=== PATIENT | female | born 1970 | race Caucasian/White ===

== ENCOUNTER 2022-03-26 10:39 | Outpatient (CLI) | payer OTHER, SELFPAY ==
--- NOTE | 2022-03-26 | US_ITS ---
DIAGNOSTIC BILATERAL DIGITAL BREAST TOMOSYNTHESIS MAMMOGRAPHY WITH CAD Bilateral breast ultrasound, limited HISTORY: Palpable bilateral breast masses. COMPARISON: 11/30/2016 and 01/10/2015 TECHNIQUE: Bilateral craniocaudad, mediolateral oblique, and mediolateral views are submitted with tomosynthesis and SM. Magnification views RIGHT breast. Spot compression bilateral breast. Computer aided detection utilized. Breast composition: The breasts are extremely dense, which lowers the sensitivity of mammography. There is dense breast tissue bilaterally. No discrete masses are identified within the anterior breast as indicated by the markers. There is a group of the calcification upper-outer quadrant of the RIGHT breast, 10:00. Some of these calcifications are benign in appearance and others are more concerning. Bilateral breast ultrasound, limited. RIGHT breast: At 3:00 in the superficial soft tissue is a well-circumscribed hypoechoic mass measuring 8 x 8 x 5 mm. No increased vascularity. Small sebaceous cyst or epidermoid. LEFT breast: In the superficial soft tissue of LEFT breast at 3:00 there is a hypoechoic soft tissue structure infiltrating and conforming to the space measuring 3.8 x 0.5 cm. On a few of the images there is some mild increased vascularity. This may be a small phlegmonous or inflammatory process. There is no lucent liquefied center. This corresponds to the area of the palpable nodule which expressed pus. IMPRESSION: BI-RADS: 4-Suspicious Finding-Biopsy Should Be Considered FOLLOW UP: Biopsy Recommended 1. Stereotactic biopsy recommended of the RIGHT breast calcifications at 10:00. 2. Recommend short-term ultrasound follow-up of the bilateral subareolar hypoechoic areas. Suspect the RIGHT breast mass is probably a sebaceous cyst or epidermoid. LEFT breast subareolar collection is probably phlegmonous. If either of these areas increase in size ultrasound biopsy can be obtained. Recommend 6 month ultrasound follow-up. MTDD
--- NOTE | 2022-03-26 10:49 | MM_ITS ---
WS: [id number] DIAGNOSTIC BILATERAL DIGITAL BREAST TOMOSYNTHESIS MAMMOGRAPHY WITH CAD Bilateral breast ultrasound, limited HISTORY: Palpable bilateral breast masses. COMPARISON: 11/30/2016 and 01/10/2015 TECHNIQUE: Bilateral craniocaudad, mediolateral oblique, and mediolateral views are submitted with to mosmil and MARÍA. Magnification views RIGHT breast. Spot compression bilateral breast. Computer aid ed detection utilized. Breast composition: The breasts are extremely dense, which lowers the sensitivity of mammography. The re is dense breast tissue bilaterally. No discrete masses are identified within the anterior breast a s indicated by the markers. There is a group of the calcification upper-outer quadrant of the RIGHT b reast, 10:00. Some of these calcifications are benign in appearance and others are more concerning. Bilateral breast ultrasound, limited. RIGHT breast: At 3:00 in the superficial soft tissue is a well-circumscribed hypoechoic mass measurin g 8 x 8 x 5 mm. No increased vascularity. Small sebaceous cyst or epidermoid. LEFT breast: In the superficial soft tissue of LEFT breast at 3:00 there is a hypoechoic soft tissue structure infiltrating and conforming to the space measuring 3.8 x 0.5 cm. On a few of the images the re is some mild increased vascularity. This may be a small phlegmonous or inflammatory process. There is no lucent liquefied center. This corresponds to the area of the palpable nodule which expressed p us. MM/[place] [id number] IMPRESSION: BI-RADS: 4-Suspicious Finding-Biopsy Should Be Considered FOLLOW UP: Biopsy Recommended 1. Stereotactic biopsy recommended of the RIGHT breast calcifications at 10:00 . 2. Recommend short-term ultrasound follow-up of the bilateral subareolar hypoe choic areas. Suspect the RIGHT breast mass is probably a sebaceous cyst or epid ermoid. LEFT breast subareolar collection is probably phlegmonous. If either of these areas increase in size ultrasound biopsy can be obtained. Recommend 6 mo nt ultrasound follow-up.
== END 2022-03-26 10:40 | disposition home or self-care (01) ==
LOC: RAD 10:43
PROVIDERS: Visit Provider Family Medicine
DX: N63.11 Unspecified lump in the right breast, upper outer quadrant (principal); N63.20 Unspecified lump in the left breast, unspecified quadrant
CPT/HCPCS: 76642; 77062; G0279

== ENCOUNTER 2022-05-01 12:29 | Outpatient (CLI) | payer OTHER, SELFPAY ==
--- NOTE | 2022-05-01 12:48 | MM_ITS ---
WS: [id number] STEREOTACTIC RIGHT BREAST BIOPSY WITH VACUUM ASSISTANCE HISTORY: RIGHT breast calcifications upper outer quadrant. COMPARISON: 03/26/2022, 11/30/2016 Procedure, risks and complications were explained to the patient. Medications and prior radiographs a re reviewed. RIGHT breast calcifications are located. Calcifications localized to the posterior upper outer quadra nt. Calcifications are targeted in the craniocaudal projection. The skin is cleansed with ChloraPrep and anesthetized with 1% buffered lidocaine. Deeper soft tissues anesthetized with a combination of l idocaine and epinephrine. Small dermatome is made. Needle advanced into the breast. Stereotactic imag ing reveals appropriate positioning adjacent calcifications. Multiple vacuum-assisted core biopsies a re obtained. Patient had significant bleeding during this examination which started with the first bi opsy. Patient also became vasovagal during this examination. Post biopsy specimen radiograph reveals numerous calcifications. Biopsy clip was not placed in the cavity. We did attempt to place the biopsy clip in the cavity but d ue to patient's acute vasovagal symptoms the needle had to be removed from the breast in order to att end to the patient's acute symptoms. Patient continued to bleed postbiopsy. Large hematoma was evident at the biopsy site. Compression and ice pack were necessary. Long-term compression was necessary. Patient continued to bleed slowly. Aft er approximately an hour and a half the bleeding lessened the patient was able to go home. Patient wa s instructed to return to the emergency department if bleeding persisted. Note: Patient had significant bleeding during this biopsy. Large hematoma developed at the biopsy sit e. Patient was able to be discharged after approximately an hour and a half with resolution of the bl eeding. Patient also had a significant vasovagal reaction during the biopsy therefore no biopsy clip was able to be placed. MM/[place] [id number] IMPRESSION: 1. RIGHT breast stereotactic biopsy. 2. Specimen contains numerous calcifications. Pathology: Usual ductal hyperplasia with microcalcifications. No malignancy. RECOMMENDATION: 6 month diagnostic RIGHT mammogram.
== END 2022-05-01 12:30 | disposition home or self-care (01) ==
LOC: RAD 12:39
PROVIDERS: PCP Family Medicine; Visit Provider Surgery
DX: R92.0 Mammographic microcalcification found on diagnostic imaging of breast (principal); N62 Hypertrophy of breast
CPT/HCPCS: 19081; 77065; 88305

== ENCOUNTER → 2022-05-10 09:44 | Outpatient (BNVA) | payer OTHER, SELFPAY | PROVIDERS: PCP Family Medicine; Visit Provider Family Medicine | DX: Z13.6 Encounter for screening for cardiovascular disorders (principal) | CPT/HCPCS: 80053; 80061; 81000; 84443; 85025 ==

== ENCOUNTER → 2022-06-19 09:46 | Outpatient (BNVA) | payer OTHER, SELFPAY | PROVIDERS: PCP Family Medicine; Visit Provider Family Medicine | DX: R79.89 Other specified abnormal findings of blood chemistry (principal) | CPT/HCPCS: 80074; 86664; 86665 ==

== ENCOUNTER → 2022-06-29 14:13 | Outpatient (BNVA) | payer SELFPAY | PROVIDERS: PCP Family Medicine; Visit Provider Family Medicine | DX: R79.89 Other specified abnormal findings of blood chemistry (principal) | CPT/HCPCS: 80053 ==

== ENCOUNTER 2022-08-08 13:32 | Outpatient (CLI) | payer OTHER, SELFPAY ==
--- NOTE | 2022-08-08 13:45 | CT_ITS ---
WS: [id number] LDCT LUNG CANCER SCREENING TECHNIQUE: Noncontrast CT of the chest with coronal and sagittal reformatted images. CLINICAL INFORMATION: screening COMPARISON: None. DLP: 39.71 mGy.cm DIvol: Mean CTDIvol: 0.60 (mGy) All CT scans at [facility] use at least one of these dose optimization techniques: automat ed exposure control; mA and/or kV adjustment per patient size (includes targeted exams where dose is matched to clinical indication); or iterative reconstruction. FINDINGS: No acute pulmonary infiltrates. No focal pneumonia or pleural fluid. Lobulated slightly spi culated nodular opacity RIGHT lower lobe near the diaphragm measuring 10 mm and 5.2 mm. Recommend 3 m onth follow-up LDCT Tiny noncalcified subpleural nodule LEFT upper lobe anteriorly Aortic calcification. No mediastinal or hilar lymphadenopathy. Calcified small bilateral calcified th yroid nodules. No axillary lymphadenopathy. Diffuse fatty infiltration liver. Normal GE junction. Normal spleen. Dense breast tissue bilaterally. CT/CT lung screening [id number] IMPRESSION: Lobulated slightly spiculated nodular opacity RIGHT lower lobe near the diaphragm measuring 10 mm and 5.2 mm. Recommend 3 month follow-up LDCT LUNG-RADS: 4A-Probably Suspicious FOLLOW UP: 3 Month LDCT
== END 2022-08-08 13:33 | disposition home or self-care (01) ==
PROVIDERS: PCP Family Medicine; Visit Provider Family Medicine
DX: Z12.2 Encounter for screening for malignant neoplasm of respiratory organs (principal); F17.219 Nicotine dependence, cigarettes, with unspecified nicotine-induced disorders
CPT/HCPCS: 71271; 80053

== ENCOUNTER 2022-08-14 06:27 | Outpatient (CLI) | payer OTHER, SELFPAY ==
--- NOTE | 2022-08-14 06:30 | US_ITS ---
WS: [id number] Complete ABDOMINAL ULTRASOUND HISTORY: elevated LFTs COMPARISON: None available. Liver: 20.3 cm in length. Moderate enlargement of the liver due to hepatic steatosis. Coarse echotext ure. No mass. Portal Vein: Normal hepatopetal flow with monophasic waveform. Gallbladder: Normally distended with layering stones and sludge. No wall thickening or pericholecysti c fluid. CBD: 0.4 cm Pancreas: Normal size and echogenicity. Right kidney: 11.0 cm x 4.8 x 4.5 cm. Cortex:1.3 cm. Left kidney: 12.3 cm x 5.8 cm x 4.8 cm. Cortex: 1.3 cm. Normal size and echogenicity. No hydronephrosis or mass. Spleen: 12.0 cm in length. No mass. Aorta and IVC: Unremarkable abdominal aorta and IVC. US/US abdomen complete* [id number] Impression: 1. Layering sludge and small stones within the gallbladder. No wall thickening or biliary dilatation. 2. Moderate hepatic enlargement and hepatic steatosis. 3. No renal obstruction.
== END 2022-08-14 06:28 | disposition home or self-care (01) ==
PROVIDERS: PCP Family Medicine; Visit Provider Family Medicine
DX: K80.20 Calculus of gallbladder without cholecystitis without obstruction (principal); R79.89 Other specified abnormal findings of blood chemistry
CPT/HCPCS: 76700

== ENCOUNTER → 2022-09-19 16:24 | Outpatient (BNVA) | payer OTHER, SELFPAY | PROVIDERS: PCP Family Medicine; Visit Provider Registered Nurse Neonatal Intensive Care | DX: R19.7 Diarrhea, unspecified (principal); L02.91 Cutaneous abscess, unspecified | CPT/HCPCS: 87493; 87506 ==

== ENCOUNTER 2022-10-09 11:16 | Emergency (ER) | payer OTHER, SELFPAY ==
[2022-10-09 11:41] VITALS: BMI 21.0
[2022-10-09 11:45] VITALS: BP 115/77; PULSE 92; RESP 16; TEMP 36.7; O2SAT 98
[2022-10-09 13:14] LABS: Basophils % 0.4 %; Eosinophils % 0.4 %; Hematocrit 39.4 % (37.0-47.0); Hemoglobin 13.6 g/dL (11.5-15.3); Lymphocytes # 1.4 10^3/uL (0.8-4.8); Lymphocytes % 17.2 %; Mean Corpuscular HGB Conc 34.5 g/dL (30.0-36.0); Mean Corpuscular Hemoglobin 35.3 pg (28.0-34.0); Mean Corpuscular Volume 102.3 fl (81-99); Mean Platelet Volume 11.7 fL (7.4-10.4); Monocytes # 0.8 10^3/uL (0.2-0.9); Monocytes % 9.1 %; Neutrophils # 6.08 10^3/uL (1.8-7.7); Neutrophils % 72.7 %; Nucleated Red Blood Cells % 0 %; Platelet Count 121 10^3/cmm (130-400); Red Blood Count 3.85 10^6/uL (4.1-5.3); Red Cell Distribution Width 14.7 % (12.1-15.1); White Blood Count 8.4 10^3/uL (4.0-10.0)
--- NOTE | 2022-10-09 13:17 | W.ED.ABDPA2 ---
HPI - Abdominal Pain General: Chief Complaint: Abdominal Pain Stated Complaint: stomach distension Time Seen by Provider: 10/09/22 13:15 Source: patient History of Present Illness: 52-year-old female who presents emergency room complaining of abdominal distention. She has epigastric pain off and on since around September 13 since that time she also noticed progression of abdominal distention. She has some mild early satiety she denies any hematemesis coffee-ground emesis no history of any esophageal varices or upper GI bleeds. She denies any melena. No known history of any cirrhosis or hepatitis she does states she had a previous scan she was told she had fatty liver disease. She admits to drinking 3 drinks per day to me she told the nurse 6 drinks per day. States she has been doing this for several years unable to really fully quantify. She has some mild discomfort in the left upper quadrant but nowhere else. MD elicited complaint: abdominal pain Pain Consistency: constant Location: Diffuse Quality: cramping Exacerbating factors: nothing Relieving factors: nothing Associated Symptoms: Denies anorexia, belching, bloating, change in bowel habits, change in stool character, chills, coffee ground emesis, constipation, GI cramping, diarrhea, dyspepsia, dysuria, excessive flatus, fever(s), heartburn, hematochezia, hematuria, hematemesis, fecal incontinence, loose stools, melena, nausea, poor appetite, syncope and vomiting Review of Systems Const: Denies: fever(s) or chills ENMT: Denies: throat pain, ear or mastoid pain, nasal discharge or nasal congestion Card: Denies: syncope Resp: Denies: dyspnea, productive cough or non-productive cough GI: Denies: abdominal pain, nausea, vomiting, hematemesis, coffee ground emesis, heartburn, diarrhea, constipation, bloating, GI cramping, belching, excessive flatus, fecal incontinence, change in bowel habits, change in stool character, hematochezia or melena : Denies: dysuria or hematuria Skin/Breast: Denies: rash or pruritus PFSH ED PFSH: Medical History Abnormal uterine bleeding Intramural, submucous, and subserous leiomyoma of uterus Rosacea Sleep apnea with hypersomnolence Surgical History S/P D&C (status post dilation and curettage) S/P tubal ligation Family History Other Hypertension Social History Smoking and tobacco status: current every day smoker cigarettes Packs smoked per day: 1 Alcohol intake: current Alcohol intake frequency: few times a month Alcohol type: beer Substance/Drug Use: current Substance/Drug use frequency: daily Marital status: Single Physical Exam Const: GENERAL APPEARANCE: cooperative and comfortable ORIENTATION/CONSCIOUSNESS: Yes awake, Yes oriented to person, Yes oriented to place and Yes oriented to time HENMT: COMMON NORMALS: normocephalic, atraumatic and hearing grossly normal bilaterally HEAD & SCALP: normocephalic and atraumatic Resp: COMMON NORMALS: normal respiratory effort, No retractions, No use of accessory muscles and clear to auscultation bilaterally AUSCULTATION: clear to auscultation bilaterally Cardio: COMMON NORMALS: regular rate, regular rhythm and No murmurs present (Cardio) RATE: regular rate RHYTHM: regular rhythm GI: INSPECTION: Yes abdominal distension PALPATION: Yes Tenderness to palpation present (GI) Details: LUQ and No Guarding due to palpation present (GI) PERCUSSION: dullness to percussion Extremity: COMMON NORMALS: normal to inspection, capillary refill normal, no clubbing, cyanosis or edema, no calf tenderness and no pedal edema Neuro: SENSORIUM/ORIENTATION: Yes oriented to person, Yes oriented to place and Yes oriented to time Skin: COMMON NORMALS: no rashes or lesions noted GENERAL SKIN EXAM: no rashes or lesions noted Course Vital Signs: Vital signs: Vital Signs Temperature 98.1 F 10/09/22 11:45 Pulse Rate 90 10/09/22 15:18 Respiratory Rate 18 10/09/22 15:18 Blood Pressure 122/80 10/09/22 15:18 Pulse Oximetry 97 10/09/22 15:18 Oxygen Delivery Me thod Room Air 10/09/22 13:45 MDM - Abdominal Pain Medical Decision Making Reviewed findings with the patient. Given her history and imaging findings this most likely is caused from alcohol we will get a hepatitis panel scheduled for an outpatient paracentesis. Earlier this year she had an acute hepatitis panel which was negative. Encourage patient to consider assistance with abstinence from alcohol such as turning leaf or AA program. Also discussed possibility of withdrawal if she stops drinking she does not feel that will be an issue. She feels this is more related to the Bactrim which she took. Medical Records I reviewed the patient's medical records. Lab Data I reviewed the patient's lab results. 10/09/22 12:46 10/09/22 12:46 Labs/Radiology: Laboratory Results WBC 8.4 10^3/uL (4.0-10.0) 10/09/22 12:46 RBC 3.85 10^6/uL (4.1-5.3) L 10/09/22 12:46 Hgb 13.6 g/dL (11.5-15.3) 10/09/22 12:46 Hct 39.4 % (37.0-47.0) 10/09/22 12:46 MCV 102.3 fl (81-99) H 10/09/22 12:46 MCH 35.3 pg (28.0-34.0) H 10/09/22 12:46 MCHC 34.5 g/dL (30.0-36.0) 10/09/22 12:46 RDW 14.7 % (12.1-15.1) 10/09/22 12:46 Plt Count 121 10^3/cmm (130-400) L 10/09/22 12:46 MPV 11.7 fL (7.4-10.4) H 10/09/22 12:46 Neut % (Auto) 72.7 % 10/09/22 12:46 Lymph % (Auto) 17.2 % 10/09/22 12:46 Republic % (Auto) 9.1 % 10/09/22 12:46 Eos % (Auto) 0.4 % 10/09/22 12:46 Baso % (Auto) 0.4 % 10/09/22 12:46 Neut # (Auto) 6.08 10^3/uL (1.8-7.7) 10/09/22 12:46 Lymph # (Auto) 1.4 10^3/uL (0.8-4.8) 10/09/22 12:46 Republic # (Auto) 0.8 10^3/uL (0.2-0.9) 10/09/22 12:46 Eos # (Auto) 0.0 10^3/uL (0.0-0.8) 10/09/22 12:46 Baso # (Auto) 0.0 10^3/uL (0.0-0.1) 10/09/22 12:46 Nucleated RBC % (auto) 0 % 10/09/22 12:46 Nucleated RBCs # 0.0 /100WBC 10/09/22 12:46 PT 15.90 SECONDS (12.1-14.9) H 10/09/22 12:46 INR 1.23 (0.8-1.2) H 10/09/22 12:46 APTT 33.0 SECONDS (23.9-36.7) 10/09/22 12:46 Sodium 136 mmol/L (136-145) 10/09/22 12:46 Potassium 3.5 mmol/L (3.5-5.1) 10/09/22 12:46 Chloride 97 mmol/L (98-107) L 10/09/22 12:46 Carbon Dioxide 26 mmol/L (22-29) 10/09/22 12:46 Anion Gap 16.5 (5-19) 10/09/22 12:46 BUN 2 mg/dL (6-20) L 10/09/22 12:46 Creatinine 0.3 mg/dL (0.5-0.9) L 10/09/22 12:46 GFR Calculation 235.5 mL/min (90-130) H 10/09/22 12:46 Glucose 92 mg/dL (65-115) 10/09/22 12:46 Calculated Osmolality 278 mOsm/kg (285-295) L 10/09/22 12:46 Calcium 8.6 mg/dL (8.5-10.5) 10/09/22 12:46 Total Bilirubin 0.9 mg/dL (0.15-1.2) 10/09/22 12:46 AST 165 U/L (0-32) H 10/09/22 12:46 ALT 34 U/L (0-33) H 10/09/22 12:46 Alkaline Phosphatase 193 U/L (35-105) H 10/09/22 12:46 Ammonia Cancelled 10/09/22 14:07 Total Protein 7.0 g/dL (6.6-8.7) 10/09/22 12:46 Albumin 3.6 g/dL (3.5-5.2) 10/09/22 12:46 Globulin 3.4 g/dL (1.3-4.6) 10/09/22 12:46 Lipase 32 U/L (13-60) 10/09/22 12:46 Urine Color Yellow (Yellow) 10/09/22 14:40 Urine Appearance Clear (CLEAR) 10/09/22 14:40 Urine pH 6.5 (5-7) 10/09/22 14:40 Ur Specific Moselle 1.005 (1.005-1.030) 10/09/22 14:40 Urine Protein Neg (Negative) 10/09/22 14:40 Urine Glucose (UA) Norm (Normal) 10/09/22 14:40 Urine Ketones Negative (Negative) 10/09/22 14:40 Urine Blood Neg (Negative) 10/09/22 14:40 Urine Nitrate Negative (Negative) 10/09/22 14:40 Urine Bilirubin Neg (Negative) 10/09/22 14:40 Urine Urobilinogen Norm mg/dL (Negative) 10/09/22 14:40 Ur Leukocyte Esterase Negative (Negative) 10/09/22 14:40 Discharge Plan Discharge Patient Disposition: Home Clinical Impression: Alcoholic cirrhosis of liver with ascites Condition: Stable Prescriptions: No Action Adult Multivitamin Gummies 200 mcg Tablet,Chewable 2 tab PO DAILY Probiotic Blend 2 billion cell-50 mg Capsule 3 cap PO DAILY Discharge Orders: Discharge ED (Routine); Ordered 10/09/22 Ordered By: Byron Juares Referrals: Tami Han DO [Primary Care Provider] - Discharge Diet: As Directed Discharge Activity: Resume usual activity Patient Instructions: Cirrhosis of the Liver (ED), Ascites (ED), Alcohol Dependence (ED), Opioid Safety, Pain Management Activity Restrictions/Additional Instructions: Case management will call to arrange for a outpatient paracentesis Coding Level of Care Code ED Bowling Pin Refinisher for Barry Thomas
[2022-10-09 13:24] LABS: Alanine Aminotransferase 34 U/L (0-33); Albumin Level 3.6 g/dL (3.5-5.2); Alkaline Phosphatase 193 U/L (35-105); Anion Gap 16.5 (5-19); Aspartate Amino Transferase 165 U/L (0-32); Blood Urea Nitrogen 2 mg/dL (6-20); Calcium 8.6 mg/dL (8.5-10.5); Carbon Dioxide 26 mmol/L (22-29); Chloride 97 mmol/L (98-107); Globulin 3.4 g/dL (1.3-4.6); Glomerular Filtration Rate 235.5 mL/min (90-130); Glucose 92 mg/dL (65-115); Lipase 32 U/L (13-60); Osmolality Calculated 278 mOsm/kg (285-295); Potassium 3.5 mmol/L (3.5-5.1); Sodium 136 mmol/L (136-145); Total Bilirubin 0.9 mg/dL (0.15-1.2)
--- NOTE | 2022-10-09 13:40 | CT_ITS ---
WS: [id number] CT ABDOMEN AND PELVIS NONCONTRAST HISTORY: Abdominal pain TECHNIQUE: Imaging performed through the abdomen and pelvis. Coronal and sagittal reformats are submi tted. All CT scans at [facility] use at least one of these dose optimization techniques: auto mated exposure control; mA and/or kV adjustment per patient size (includes targeted exams where dose is matched to clinical indication); or iterative reconstruction. DLP: 377.68 mGy.cm COMPARISON: None available. Lower thorax: Lung bases are hyperexpanded. There is mild bronchial thickening which is probably due to history of smoking. No dense consolidations. Normal size heart. Liver: Marked hepatic enlargement and low-attenuation. No mass identified on this unenhanced exam. Gallbladder: Normally distended gallbladder with stones. Pancreas: Normal size and attenuation. Normal pancreatic duct. No pancreatitis or mass. Spleen: Normal size. Adrenal glands: Normal. No mass. Right kidney: Normal size kidney with no mass or hydronephrosis. Left kidney: Normal size kidney with no mass or hydronephrosis. Aorta: Mild atherosclerosis abdominal aorta with no aneurysm. Interval development of small to moderate amount of ascites throughout the abdomen and pelvis. No asc ites was noted adjacent to the liver on the prior lung screening CT of 08/08/2022. Mild omental thicke elva may be due to the edema. No adenopathy is identified. GI tract: Nondistended stomach. No small bowel obstruction. No colon obstruction. Mild sigmoid divert icular disease. Abdominal wall: Soft tissue anasarca. Pelvis: Moderate amount of free fluid in the pelvis. Urinary bladder is distended. Bulbous appearance of the posterior uterus is probably a fibroid. Osseous structures: Unremarkable. IMPRESSION: 1. Small to moderate amount of ascites noted within the abdomen and pelvis. No ascites was noted adj acent to the liver on 08/08/2022. 2. Marked hepatomegaly and hepatic steatosis versus hepatic congestion. 3. Cholelithiasis without evidence for acute cholecystitis. 4. No GI tract obstruction. A few scattered diverticula without acute diverticulitis. Notified Byron Juares DO at 10/09/2022 2:48 PM.
[2022-10-09 13:45] VITALS: BP 123/92; PULSE 91; RESP 18; O2SAT 96
[2022-10-09 13:52] LABS: INR 1.23 (0.8-1.2)
[2022-10-09 14:56] LABS: Add Urine Microscopic? NO; Charge for UA Resulting for Rev
[2022-10-09 15:04] LABS: Specific Gravity, Urine 1.005 (1.005-1.030); Urine Appearance Clear (CLEAR); Urine Color Yellow (Yellow); pH Urine 6.5 (5-7)
[2022-10-09 15:05] LABS: Bilirubin Urine Neg (Negative); Blood Urine Neg (Negative); Glucose Urine UA Norm (Normal); Ketones Urine Negative (Negative); Leukocyte Esterase Urine Negative (Negative); Nitrate Urine Negative (Negative); Protein Urine Neg (Negative); Urobilinogen Urine Norm (Negative)
[2022-10-09 15:18] VITALS: BP 122/80; PULSE 90; RESP 18; O2SAT 97
[2022-10-09 15:32] LABS: Ammonia 33 umol/L (11-51)
[2022-10-09 15:47] LABS: Hepatitis A Antibody IgM Non-Reactive (Nonreactive); Hepatitis B Core IgM Non-Reactive (Nonreactive); Hepatitis B Surface Antigen Non-Reactive (Nonreactive); Hepatitis C Virus Antibody Non-Reactive (Nonreactive)
--- NOTE | 2022-10-10 09:04 | DCPLANNER ---
Addendum entered by Isha Winston 10/16/22 11:47: Patient did attend the paracentesis. Original Note: completion manager had message to schedule an outpatient paracentesis for patient. completion manager faxed signed order to [facility], who will call patient with appointment information.
== END 2022-10-09 15:24 | disposition home or self-care (01) ==
PROVIDERS: Physician Assistant; Emergency Provider Family Medicine; PCP Family Medicine
DX: K70.31 Alcoholic cirrhosis of liver with ascites (principal); F17.210 Nicotine dependence, cigarettes, uncomplicated
CPT/HCPCS: 36415; 74176; 80053; 80074; 81003; 82140; 83690; 85025; 85610; 85730; 99284

== ENCOUNTER 2022-10-11 10:04 | Day surgery (SDC) | payer OTHER, SELFPAY ==
[2022-10-10 12:08] VITALS: BMI 21.0
[2022-10-11 10:14] VITALS: BP 115/75; PULSE 111; RESP 18; TEMP 36.5; O2SAT 96
--- NOTE | 2022-10-11 10:18 | US_ITS ---
WS: [id number] ULTRASOUND-GUIDED PARACENTESIS CLINICAL INFORMATION: alcoholic cirrhosis/ascites COMPARISON: None. Procedure Informed consent: The risks, benefits, and alternatives of the procedure were discussed with the estella ent. Verbal and written consent was obtained. Timeout: A timeout was performed to confirm the correct patient, procedure, and site. Preparation: A suitable skin site was identified. The patient was prepped and draped in usual sterile fashion. Lidocaine 1% was used for local anesthesia. Catheter: 4 Swedish One-step Yueh catheter. Side: Right lower quadrant. Fluid Volume: 2800 ml Color: Clear yellow DISPOSITION: Discarded safely. Complications: None. Patient disposition: Discharged from the department in stable condition. IMPRESSION: Uncomplicated ultrasound-guided paracentesis. Removal of 2800 cc
[2022-10-11 11:38] VITALS: BP 107/67; PULSE 96; RESP 17; O2SAT 96
== END 2022-10-11 11:42 | disposition home or self-care (01) ==
PROVIDERS: Radiology Neuroradiology; PCP Family Medicine; Visit Provider Family Medicine
PROC: (CPT 49082; principal; 2022-10-11 11:00)
DX: K70.31 Alcoholic cirrhosis of liver with ascites (principal)
CPT/HCPCS: 49083

== ENCOUNTER → 2022-11-01 15:18 | Outpatient (BNVA) | payer OTHER, SELFPAY | PROVIDERS: PCP Family Medicine; Visit Provider Family Medicine | DX: K70.31 Alcoholic cirrhosis of liver with ascites (principal) | CPT/HCPCS: 80053; 85025 ==

== ENCOUNTER 2022-11-13 14:45 | Outpatient (CLI) | payer OTHER, SELFPAY ==
--- NOTE | 2022-11-13 15:09 | MM_ITS ---
WS: [id number] DIAGNOSTIC RIGHT DIGITAL TOMOSYNTHESIS MAMMOGRAPHY WITH CAD. Bilateral breast ultrasound, limited HISTORY: 6 MO F/U BR BX CALCS COMPARISON: 05/01/2022, 03/26/2022 Technique: CC, MLO and ML views. Magnification views RIGHT CC. Breast composition: The breasts are extremely dense, which lowers the sensitivity of mammography. Vasu cific burden has decreased in the upper outer quadrant of the RIGHT breast. This is secondary to the biopsy. Very dense fibroglandular tissue is noted. No interval change otherwise. Bilateral breast ultrasound, limited. RIGHT: At 3:00 there is a subcutaneous nodule measuring 6 x 4 mm which is slightly smaller than the p rior examination. This may be a small sebaceous cyst. No increased vascularity. LEFT: At 3:00 no abnormality is noted near the areola. IMPRESSION: MM/[place] [id number] BI-RADS: 2-Benign FOLLOW UP: 1 Year Follow-up Patient return to annual screening mammography. Patient's breasts are very dens e. If any breast changes or palpable areas become apparent additional imaging c an be performed at that time.
--- NOTE | 2022-11-13 15:43 | US_ITS ---
WS: [id number] DIAGNOSTIC RIGHT DIGITAL TOMOSYNTHESIS MAMMOGRAPHY WITH CAD. Bilateral breast ultrasound, limited HISTORY: 6 MO F/U BR BX CALCS COMPARISON: 05/01/2022, 03/26/2022 Technique: CC, MLO and ML views. Magnification views RIGHT CC. Breast composition: The breasts are extremely dense, which lowers the sensitivity of mammography. Vasu cific burden has decreased in the upper outer quadrant of the RIGHT breast. This is secondary to the biopsy. Very dense fibroglandular tissue is noted. No interval change otherwise. Bilateral breast ultrasound, limited. RIGHT: At 3:00 there is a subcutaneous nodule measuring 6 x 4 mm which is slightly smaller than the p rior examination. This may be a small sebaceous cyst. No increased vascularity. LEFT: At 3:00 no abnormality is noted near the areola. IMPRESSION: US/US breast BI limited* [id number] BI-RADS: 2-Benign FOLLOW UP: 1 Year Follow-up Patient return to annual screening mammography. Patient's breasts are very dens e. If any breast changes or palpable areas become apparent additional imaging c an be performed at that time.
== END 2022-11-13 14:46 | disposition home or self-care (01) ==
PROVIDERS: PCP Family Medicine; Visit Provider Family Medicine
DX: R92.1 Mammographic calcification found on diagnostic imaging of breast (principal); R92.2 Inconclusive mammogram
CPT/HCPCS: 76642; 77061; G0279

== ENCOUNTER 2022-11-14 14:55 | Outpatient (CLI) | payer OTHER, SELFPAY ==
--- NOTE | 2022-11-14 15:00 | CT_ITS ---
WS: [email or web address] CT CHEST TECHNIQUE: Contrast enhanced CT of the chest with coronal and sagittal reformatted images. CLINICAL INFORMATION: Nodule to right lower lobe COMPARISON: 08/08/2022 DLP: 226.[address] scans at [facility] use at least one of these dose optimization techniques: automated e xposure control; mA and/or kV adjustment per patient size (includes targeted exams where dose is matc hed to clinical indication); or iterative reconstruction. FINDINGS: Previously described slightly irregular nodular opacity RIGHT lower lobe along the diaphragm is stabl e in appearance compared to previous. No evidence of interval progression. This measures approximatel y 10 x 5 mm unchanged. Recommend 6-month follow-up. Few calcified granulomas. Mild chronic emphysemat ous changes. No acute pulmonary infiltrates. No focal pneumonia or pleural fluid. Normal caliber thor acic aorta. Aortic calcification. Coronary calcification. No axillary lymphadenopathy. Small amount of perihepatic ascites. Hepatomegaly with diffuse heterogeneous echotexture. IMPRESSION: Stable nodular opacity RIGHT lower lobe along the diaphragm. Recommend 6-month chest CT follow-up.
[2022-11-14] MEDS: iohexol 350 mg/mL 500 mL Btl (per mL) IV (15:14)
== END 2022-11-14 14:56 | disposition home or self-care (01) ==
PROVIDERS: PCP Family Medicine; Visit Provider Family Medicine
DX: R91.1 Solitary pulmonary nodule (principal)
CPT/HCPCS: 71260; Q9967

== ENCOUNTER 2022-11-27 16:47 | Outpatient (CLI) | payer OTHER, SELFPAY ==
[2022-11-27 17:43] LABS: Basophils % 0.5 %; Eosinophils # 0.1 10^3/uL (0.0-0.8); Lymphocytes # 1.4 10^3/uL (0.8-4.8); Lymphocytes % 25.8 %; Mean Corpuscular HGB Conc 34.3 g/dL (30-55); Mean Corpuscular Volume 93.3 fl (85-98); Monocytes # 0.6 10^3/uL (0.2-0.9); Monocytes % 10.1 %; Neutrophils # 3.41 10^3/uL (1.8-7.7); Neutrophils % 61.4 %; Nucleated Red Blood Cells % 0 %; Platelet Count 147 10^3/cmm (157-399); Red Blood Count 3.75 10^6/uL (3.85-5.65); Red Cell Distribution Width 14.4 % (12.1-15.1); White Blood Count 5.55 10^3/uL (3.29-11.43)
[2022-11-27 17:48] LABS: Ammonia 20 umol/L (11-51)
[2022-11-27 18:29] LABS: Alanine Aminotransferase 19 U/L (0-33); Albumin Level 3.9 g/dL (3.5-5.2); Alkaline Phosphatase 139 U/L (35-105); Anion Gap 16.5 (5-19); Aspartate Amino Transferase 46 U/L (0-32); Blood Urea Nitrogen 12 mg/dL (6-20); Calcium 9.5 mg/dL (8.5-10.5); Carbon Dioxide 25 mmol/L (22-29); Chloride 100 mmol/L (98-107); Globulin 3.3 g/dL (1.3-4.6); Glomerular Filtration Rate 130.6 mL/min (90-130); Glucose 114 mg/dL (65-115); Osmolality Calculated 287 mOsm/kg (285-295); Potassium 3.5 mmol/L (3.5-5.1); Sodium 138 mmol/L (136-145); Total Bilirubin 0.7 mg/dL (0.15-1.2); Total Protein 7.2 g/dL (6.6-8.7)
[2022-11-27 18:40] LABS: Vitamin B12 422 pg/mL (232-1245)
[2022-11-27 21:19] LABS: Folate Level > 20.0 ng/mL (4.8-37.3)
== END 2022-11-27 16:48 | disposition home or self-care (01) ==
LOC: LAB 16:49
PROVIDERS: PCP Family Medicine; Visit Provider Family Medicine
DX: K70.31 Alcoholic cirrhosis of liver with ascites (principal); D53.9 Nutritional anemia, unspecified
CPT/HCPCS: 36415; 80053; 82140; 82607; 82746; 85025

== ENCOUNTER → 2023-01-29 15:25 | Outpatient (BNVA) | payer OTHER, SELFPAY | PROVIDERS: PCP Family Medicine; Visit Provider Family Medicine | DX: K70.31 Alcoholic cirrhosis of liver with ascites (principal) | CPT/HCPCS: 80053; 85025 ==

== ENCOUNTER 2023-05-16 13:43 | Outpatient (CLI) | payer OTHER, SELFPAY ==
--- NOTE | 2023-05-16 14:00 | CTR_ITS ---
PROCEDURE INFORMATION: Exam: CT Chest Without Contrast; Diagnostic Exam date and time: 05/16/2023 1:48 PM Age: 53 years old Clinical indication: Abnormal findings; Abnormal radiologic exam of lung or chest; Additional info: Right lower lobe nodule TECHNIQUE: Imaging protocol: Diagnostic computed tomography of the chest without contrast. Radiation optimization: All CT scans at this facility use at least one of these dose optimization techniques: automated exposure control; mA and/or kV adjustment per patient size (includes targeted exams where dose is matched to clinical indication); or iterative reconstruction. COMPARISON: 1. CT chest w con* [id number] 11/14/2022 3:[address] lung screening [id number] 08/08/2022 1:41 PM RADIATION DOSE METRICS: Total DLP (mGy-cm): 225.52 FINDINGS: Lungs: 3-4 mm noncalcified pulmonary nodule medial right lower lobe axial series 3, image 36 stable from comparison. There is no change in the ovoid noncalcified pulmonary nodule at the inferior margin of the right lower lobe which measures 10 mm transverse diameter. Negative for acute pulmonary consolidation. Negative for endobronchial obstruction. Negative for peripheral honeycombing. Pleural spaces: Unremarkable. No pneumothorax. No pleural effusion. Heart: Negative for cardiac chamber dilation. Negative for pericardial effusion. Coronary arteries: Large volume coronary calcifications. Esophagus: Unremarkable thoracic esophagus. Lymph nodes: Unremarkable. No enlarged lymph nodes. Vasculature: Scattered calcified plaques of thoracic aorta. Negative for aneurysm. Liver: Diffuse heterogeneity of liver parenchyma redemonstrated. Bones/joints: Unremarkable. No acute fracture. Soft tissues: Unremarkable. CT/CT chest con [id number] IMPRESSION: 1. Negative for acute chest pathology. 2. Stable right lower lobe pulmonary nodules. High likelihood of benign disease. If patient at high risk of malignancy, additional noncontrast CT chest comparison could be performed in 12 months.
== END 2023-05-16 13:44 | disposition home or self-care (01) ==
LOC: RAD 13:44
PROVIDERS: PCP Family Medicine; Visit Provider Family Medicine
DX: R91.8 Other nonspecific abnormal finding of lung field (principal)
CPT/HCPCS: 71250

== ENCOUNTER → 2023-11-15 13:44 | Outpatient (BNVA) | payer OTHER, SELFPAY | PROVIDERS: PCP Family Medicine; Visit Provider Family Medicine | DX: Z13.6 Encounter for screening for cardiovascular disorders (principal); K70.31 Alcoholic cirrhosis of liver with ascites; R79.89 Other specified abnormal findings of blood chemistry; D53.9 Nutritional anemia, unspecified | CPT/HCPCS: 80053; 80061; 82607; 85025 ==

== ENCOUNTER → 2023-12-10 14:19 | Outpatient (BNVA) | payer OTHER, SELFPAY | PROVIDERS: PCP Family Medicine; Visit Provider Family Medicine | DX: Z12.4 Encounter for screening for malignant neoplasm of cervix (principal) | CPT/HCPCS: 87624 ==

== ENCOUNTER 2023-12-12 07:15 | Outpatient (CLI) | payer OTHER, SELFPAY ==
--- NOTE | 2023-12-12 07:15 | US_ITS ---
WS: [id number] RIGHT UPPER QUADRANT ULTRASOUND HISTORY: cirrhosis; abnormal liver enzymes COMPARISON: 08/14/2022 Liver: 17.7 cm in length. Liver is slightly enlarged. Diffuse coarse echotexture with nodular surface . No masses identified. Surface of the liver appears more irregular on today's examination as compare d to 08/14/2022. Portal Vein: Normal hepatopetal flow with monophasic waveform. Gallbladder: Mildly distended gallbladder. No stones or wall thickening. No pericholecystic fluid. CBD: 0.2 cm Pancreas: Normal size and echogenicity. Right kidney: 9.5 cm in length. Normal size and echogenicity. No hydronephrosis or mass. Aorta and IVC: Unremarkable abdominal aorta and IVC. No ascites. US/US abdomen limited [id number] IMPRESSION: 1. Liver is measuring top normal size with coarse echotexture. Hepatic cirrhos is suspected by ultrasound imaging. Changes have progressed since 08/14/2022. 2. No cholelithiasis. Negative gallbladder.
== END 2023-12-12 07:18 | disposition home or self-care (01) ==
PROVIDERS: PCP Family Medicine; Visit Provider Family Medicine
DX: K70.31 Alcoholic cirrhosis of liver with ascites (principal); R79.89 Other specified abnormal findings of blood chemistry; K74.60 Unspecified cirrhosis of liver
CPT/HCPCS: 76705

== ENCOUNTER 2023-12-25 14:13 | Outpatient (CLI) | payer OTHER, SELFPAY ==
--- NOTE | 2023-12-25 14:30 | MM_ITS ---
WS: [id number] BILATERAL 3D TOMOSYNTHESIS DIGITAL SCREENING MAMMOGRAPHY WITH CAD CLINICAL INFORMATION: screening for breast cancer HISTORY: Screening mammogram. No current complaints. COMPARISON: 2022 TECHNIQUE: Bilateral CC and MLO views. FINDINGS: The breasts are composed of heterogeneous fibroglandular density tissue, which can limit the detectio n of small underlying mass lesions. No suspicious mass, asymmetry, calcifications, or architectural d istortion. No evidence of malignancy. A few incidental punctate calcifications. MM/MM [facility] tomosynthesis [id number] IMPRESSION: DENSITY:The breasts are heterogeneously dense, which may obscure small masses. BI-RADS: 2 - Benign FOLLOW UP: 1 Year Follow-up Recommend return to annual screening mammography.
== END 2023-12-25 14:14 | disposition home or self-care (01) ==
LOC: RAD 14:13
PROVIDERS: PCP Family Medicine; Visit Provider Family Medicine
DX: Z12.31 Encounter for screening mammogram for malignant neoplasm of breast (principal); R92.333 Mammographic heterogeneous density, bilateral breasts
CPT/HCPCS: 77063; 77067

== ENCOUNTER → 2024-10-01 07:58 | Outpatient (BNVA) | payer OTHER, SELFPAY | PROVIDERS: PCP Family Medicine; Visit Provider Orthopaedic Surgery | DX: S62.102A Fracture of unspecified carpal bone, left wrist, initial encounter for closed fracture (principal); W19.XXXA Unspecified fall, initial encounter | CPT/HCPCS: 73110 ==